=== PATIENT | male | born 2000 | race Caucasian/White ===

== ENCOUNTER → 2024-09-05 | Outpatient (CLI) | payer OTHER | LOC: M PLALAB 15:03 | PROVIDERS: ATTEND Family Medicine | DX: M54.12 Radiculopathy, cervical region (principal) ==

== ENCOUNTER → 2024-12-23 | Outpatient (CLI) | payer OTHER | LOC: M RAD 08:28 | PROVIDERS: ATTEND Family Medicine | DX: M54.2 Cervicalgia (principal) ==